=== PATIENT | female | born 2000 | race Caucasian/White ===

== ENCOUNTER → 2022-05-01 09:11 | Outpatient (CLI) | payer OTHER, SELFPAY ==
[2022-05-01 09:51] LABS: HCG,Quantitative 743 mIU/ml (0-5.42)
== END ==
PROVIDERS: PCP Nurse Practitioner Family; Visit Provider Obstetrics & Gynecology
DX: N92.6 Irregular menstruation, unspecified (principal)
CPT/HCPCS: 36415; 84702

== ENCOUNTER → 2022-05-06 15:38 | Outpatient (CLI) | payer OTHER, SELFPAY ==
[2022-05-06 16:09] LABS: Basophils # 0.1 K/mm3 (0-0.2); Basophils % 0.7 % (0.1-2.0); Eosinophils # 0.1 K/mm3 (0.0-0.4); Hematocrit 37.9 % (37.0-47.0); Hemoglobin 12.5 g/dL (12.2-16.2); Lymphocytes # 2.4 K/mm3 (0.7-4.5); Lymphocytes % 25.7 % (10-50); Mean Corpuscular HGB Conc 32.9 g/dL (31.8-35.4); Mean Corpuscular Hemoglobin 28.2 pg (27.0-31.2); Mean Corpuscular Volume 85.9 fl (81-99); Mean Platelet Volume 7.9 fl (7.4-10.4); Monocytes # 0.4 K/mm3 (0.1-1.0); Monocytes % 4.4 % (1.7-9.3); Neutrophils # 6.4 K/mm3 (1.8-7.8); Neutrophils % 68.3 % (37.0-80.0); Platelet Count 340 K/mm3 (142-424); Red Blood Count 4.41 M/mm3 (4.20-5.40); Red Cell Distribution Width 13.6 % (11.5-17.5); White Blood Count 9.4 K/mm3 (4.8-10.8)
[2022-05-06 17:18] LABS: HCG,Quantitative 4692 mIU/ml (0-5.42)
[2022-05-08 07:26] LABS: HIV Screen 4th Generation wRfx Non Reactive (Non Reactive); Hepatitis B Surface Antigen Negative (Negative); Hepatitis C Antibody 0.1 s/co ratio (0.0-0.9)
[2022-05-08 08:18] LABS: Rubella Antibodies, IgG <0.90 index (Immune >0.99)
[2022-05-08 09:12] LABS: Rapid Plasma Reagin Ab Titer Non Reactive (NonRea<1:1)
== END ==
PROVIDERS: PCP Nurse Practitioner Family; Visit Provider Obstetrics & Gynecology
DX: Z34.90 Encounter for supervision of normal pregnancy, unspecified, unspecified trimester (principal)
CPT/HCPCS: 36415; 84144; 84702; 85025; 86592; 86703; 86762; 86850; 87340; 87380; G0432

== ENCOUNTER → 2022-08-19 13:47 | Outpatient (CLI) | payer OTHER, SELFPAY ==
--- NOTE | 2022-08-19 13:55 | US_ITS ---
FINAL REPORT CLINICAL HISTORY: 20 week anatomy scan FINDINGS: There is a single live intrauterine gestation. Presentation is cephalic. The cervix is closed and measures 3.6 cm. Placenta is anterior and grade 1. Cardiac activity is confirmed at 156 beats per minute. movement is noted. Three-vessel cord with satisfactory umbilical cord insertion. Four-chamber heart is noted. brain and ventricles are unremarkable. Chest and diaphragm are unremarkable. ABDOMEN: Both kidneys are unremarkable. Stomach is unremarkable. SPINE: No anomalies identified. Both arms and legs noted. AMNIOTIC FLUID: Appropriate amount. MEASUREMENTS: ULTRASOUND AGE: 20 weeks 4 days. GESTATION AGE: 20 weeks 4 days. ESTIMATED WEIGHT: 327 g GROWTH PERCENTILE: 19 % BPD: 4.6 cm consistent with 20 weeks 1 days. OFD: 6.1 cm consistent with 20 weeks 4 days. HC: 16.9 cm consistent with 19 weeks 4 days. AC: 14.7 cm consistent with 20 weeks 0 days. FL: 3.3 cm consistent with 20 weeks 2 days. CEREBELLUM: 1.9 cm consistent with 19 weeks 2 days. HUMERUS: 3.2 cm consistent with 20 weeks 5 days. HC/AC: 1.16 CI: 77% FL/BPD: 70% FL/AC: 22% IMPRESSION: Single living IUP with an ultrasound age of 20 weeks 4 days. Reviewed, Interpreted and Dictated by Calvin Lea III, MD Transcribed by Eleazar Chavez Authenticated and . [facility]
== END ==
PROVIDERS: PCP Nurse Practitioner Family; Visit Provider Obstetrics & Gynecology
DX: Z34.90 Encounter for supervision of normal pregnancy, unspecified, unspecified trimester (principal); Z3A.20 20 weeks gestation of pregnancy
CPT/HCPCS: 76811

== ENCOUNTER → 2022-09-16 09:17 | Outpatient (CLI) | payer OTHER, SELFPAY ==
[2022-09-16 09:32] LABS: Basophils # 0.1 K/mm3 (0-0.2); Basophils % 0.6 % (0.1-2.0); Eosinophils # 0.2 K/mm3 (0.0-0.4); Eosinophils % 1.5 % (0.1-12.0); Hematocrit 35.2 % (37.0-47.0); Hemoglobin 11.3 g/dL (12.2-16.2); Lymphocytes # 2.2 K/mm3 (0.7-4.5); Lymphocytes % 17.5 % (10-50); Mean Corpuscular HGB Conc 32.1 g/dL (31.8-35.4); Mean Corpuscular Hemoglobin 29.9 pg (27.0-31.2); Mean Platelet Volume 9.3 fl (7.4-10.4); Monocytes # 0.5 K/mm3 (0.1-1.0); Monocytes % 3.6 % (1.7-9.3); Neutrophils # 9.7 K/mm3 (1.8-7.8); Neutrophils % 76.7 % (37.0-80.0); Platelet Count 318 K/mm3 (142-424); Red Blood Count 3.78 M/mm3 (4.20-5.40); Red Cell Distribution Width 14.1 % (11.5-17.5); White Blood Count 12.7 K/mm3 (4.8-10.8)
[2022-09-16 09:42] LABS: Glucose,Fasting 88 mg/dl (74-100)
[2022-09-16 12:33] LABS: Glucose 1 Hour 99 mg/dL (74-100)
== END ==
PROVIDERS: PCP Nurse Practitioner Family; Visit Provider Obstetrics & Gynecology
DX: O09.899 Supervision of other high risk pregnancies, unspecified trimester (principal); Z28.39 Other underimmunization status
CPT/HCPCS: 36415; 82951; 85025

== ENCOUNTER → 2022-11-15 12:23 | Outpatient (CLI) | payer OTHER, SELFPAY ==
--- NOTE | 2022-11-15 13:04 | US_ITS ---
FINAL REPORT CLINICAL HISTORY: lga, NORMA FINDINGS: There is a single live intrauterine gestation. Presentation is cephalic. Cervix measures 3.1 cm. Placenta is anterior, grade 2. Heart rate is 140 beats per minute. Fetus is active. AMNIOTIC FLUID: Appropriate amount. NORMA: 16 cm Three-vessel cord is seen. Four-chamber heart is normal. MEASUREMENTS: ULTRASOUND AGE: 33 weeks 3 days. GESTATION AGE: 33 weeks 1 days. ESTIMATED WEIGHT: 2302 g GROWTH PERCENTILE: 65% LMP percentile BPD: 8.1 cm corresponding with 32 weeks 5 days. OFD: 10.4 cm corresponding with 32 weeks 5 days. HC: 29.4 cm corresponding with 32 weeks 4 days. AC: 30.1 cm corresponding with 34 weeks 5 days. FL: 6.5 cm corresponding with 33 weeks 4 days. HC/AC: 0.96 CI: 78% FL/BPD: 80% FL/AC: 21% IMPRESSION: Single living IUP with an ultrasound age of 33 weeks 3 days. NORMA of 16 cm Reviewed, Interpreted and Dictated by Calvin Lea III, MD Transcribed by Natalie Lim Authenticated and . [facility]
== END ==
PROVIDERS: PCP Nurse Practitioner Family; Visit Provider Obstetrics & Gynecology
DX: O28.8 Other abnormal findings on antenatal screening of mother (principal); O36.60X0 Maternal care for excessive fetal growth, unspecified trimester, not applicable or unspecified
CPT/HCPCS: 76816

== ENCOUNTER → 2022-12-08 16:46 | Outpatient (CLI) | payer OTHER, SELFPAY | PROVIDERS: Visit Provider Obstetrics & Gynecology | DX: Z34.90 Encounter for supervision of normal pregnancy, unspecified, unspecified trimester (principal); Z3A.34 34 weeks gestation of pregnancy | CPT/HCPCS: 86403 ==

== ENCOUNTER 2022-12-28 16:15 | Inpatient (IN) | payer OTHER, SELFPAY ==
[2022-12-28 16:22] VITALS: BMI 38.4
[2022-12-28 17:13] VITALS: BMI 38.4
[2022-12-28 17:20] LABS: Coronavirus 19, PCR Not Detected (NotDetected); Influenza A, PCR Not Detected (NotDetected); Influenza B, PCR Not Detected (NotDetected); Microscopic, Urine URINE MICROSCOPIC (MICROSCOPIC)
[2022-12-28 17:22] LABS: Appearance,Urine CLEAR (Clear); Bilirubin,Urine Negative (Negative); Blood, Urine Negative (Negative); Color,Urine YELLOW (Yellow); Glucose,Urine (UA) Negative (Negative); Ketones,Urine Negative (Negative); Leukocyte Esterase,Urine Negative (Negative); Nitrate,Urine Negative (Negative); PH,Urine 5.5 (5.0-8.5); Protein,Urine Negative (Negative); Specific Gravity, Urine >= 1.030 (1.005-1.030); Urobilinogen,Urine 0.2 EU/dl (0.2)
[2022-12-28 17:28] LABS: Basophils # 0.1 K/mm3 (0-0.2); Basophils % 0.3 % (0.1-2.0); Eosinophils # 0.1 K/mm3 (0.0-0.4); Eosinophils % 0.5 % (0.1-12.0); Hemoglobin 10.8 g/dL (12.2-16.2); Lymphocytes # 1.9 K/mm3 (0.7-4.5); Lymphocytes % 14.8 % (10-50); Mean Corpuscular HGB Conc 32.7 g/dL (31.8-35.4); Mean Corpuscular Hemoglobin 27.3 pg (27.0-31.2); Mean Corpuscular Volume 83.5 fl (81-99); Mean Platelet Volume 10.1 fl (7.4-10.4); Monocytes # 0.4 K/mm3 (0.1-1.0); Monocytes % 3.4 % (1.7-9.3); Neutrophils # 10.5 K/mm3 (1.8-7.8); Neutrophils % 80.9 % (37.0-80.0); Platelet Count 259 K/mm3 (142-424); Red Blood Count 3.96 M/mm3 (4.20-5.40); Red Cell Distribution Width 15.3 % (11.5-17.5); White Blood Count 12.9 K/mm3 (4.8-10.8)
[2022-12-28 17:33] LABS: Amphetamine/Metha Screen,Urine Negative ng/ml (<1000)
[2022-12-28 17:34] LABS: Barbiturates Screen,Urine Negative ng/ml (<200)
[2022-12-28 17:35] LABS: Benzodiazepines Screen,Urine Negative ng/ml (<200); Methadone Screen,Urine Negative ng/ml (<300)
[2022-12-28 17:36] LABS: Cannabinoid Screen,Urine Negative ng/ml (<50); Cocaine Screen,Urine Negative ng/ml (<300); Squamous Epithelial Cell,Urine Occasional #/hpf (0-5); WBC,Urine Occasional #/hpf (0-3)
[2022-12-28 17:37] LABS: Opiate Screen,Urine Negative ng/ml (<300)
[2022-12-28 17:38] LABS: Phencyclidine Screen,Urine Negative ng/ml (<25)
[2022-12-29 07:59] VITALS: BP 145/86; PULSE 108; RESP 18; TEMP 36.6; O2SAT 100
--- NOTE | 2022-12-29 07:59 | PC.NURSE ---
u/g guided IV placed in the left forearm. Iv patent with blood returned. saline locked at this time.
--- NOTE | 2022-12-29 08:42 | EXP.OB.APHP ---
OB - H&P: HPI Antepartum History of Present Illness Chief complaint: Elective induction of labor History of present illness: Mrs Jacklyn Hurst is a 22 yo at 39w3d who presents to [facility] Labor and Delivery or scheduled elective induction of labor. Complains of low back pain, pelvic pressure, insomnia and lower extremity swelling. Denies headaches. Baby is very active. History of Present Criteria for establishing EDC:: LMP confirmed by 1st trimester US care: good care Ultrasounds: normal mid trimester US Obstetrical complications: none Medical complications: none Labs Blood type: A (+) positive Rubella: nonimmune RPR/VDRL: reactive GBS status: negative HBsAG: negative PFSH [facility] Disclaimer: The information contained in this section may have been updated after the patient was seen, as this information can be updated by other users. Medical History (Updated 12/29/22 @ 08:50 by Tish Murry DO) Anemia affecting , antepartum Encounter for elective induction of labor Heartburn during with 39 completed weeks gestation Screening for genetic disease carrier status Family History Other Breast cancer Social History Smoking Status: Never smoker second hand exposure: No alcohol intake: never substance use type: denies use current occupational status: employed Travel in the last 8 weeks: None housing: house Review of Systems Review of Systems Review of systems:: pertinent systems reviewed and negative unless documented below *Genitourinary Comments: + pelvic pressure *Musculoskeletal Musculoskeletal: Reports back pain (low back) Comments: + bilateral lower extremity swelling. Meds Home Medications and Allergies Home Medications Medication Instructions Recorded Confirmed Type prenat.vits,chava,iso-oxgl-sokaa 1 tab PO DAILY Supplement 12/28/22 12/28/22 History New Prescriptions to Start Prescriptions: Allergies Allergy/AdvReac Type Severity Reaction Status Date / Time SULFA (SULFONAMIDE) Allergy Mild NA-NAUSEA Uncoded 12/23/22 16:13 OB - H&P: Exam Constitutional no acute distress Routine HEENT Exam Head: Present normocephalic and atraumatic Eye: Absent conjunctivae pink ENT: Present mucous membranes moist and dentition normal Routine Neck Exam Present full ROM Routine Respiratory Exam Present CTA bilaterally and normal respiratory effort Routine Cardiovascular Exam Present RRR Routine Abdominal Exam Present soft (Gravid); Absent tenderness Routine Rectal Exam Patient deferred: visual exam Routine Exam External: Present normal urethra appearance; Absent erythema, lesions or lacerations Routine Extremities Exam Present edema (+1 bilateral lower extremity swelling) and full ROM; Absent calf tenderness Routine Neurological Exam Present alert, oriented X3 and moving all extremities Routine Psychiatric Exam Present normal affect and cooperative Detailed Labor and Delivery Exam Dilation (cm): 2 Effacement (%): 50 Cervix position: posterior station: -3 Consistency: medium Membranes: artificially ruptured (amniotomy performed at 0815 with amnihook. patient tolerated well.) Amniotic fluid: clear Baseline heart rate: 150 monitor accelerations: Present monitor decelerations: None skilled nursing variability: Moderate (11-25) Contraction frequency (min): 3 Tachysystole: No OB - Results Labs Labs: Short CBC 12/28/22 Range/Units 17:00 WBC 12.9 H (4.8-10.8) K/mm3 Hgb 10.8 L (12.2-16.2) g/dL Hct 33.0 L (37.0-47.0) % Plt Count 259 (142-424) K/mm3 Urine 12/28/22 Range/Units 17:00 Urine Color Yellow (Yellow) Urine Appearance Clear (Clear) Urine pH 5.5 (5.0-8.5) Ur Specific [place] >= 1.030 (1.005-1.030) Urine Protein Negative (Negative) Urine Glucose (UA)
--- NOTE | 2022-12-29 13:12 | EXP.ANES.CKL ---
[facility] Disclaimer: The information contained in this section may have been updated after the patient was seen, as this information can be updated by other users. Medical History (Updated 12/29/22 @ 08:50 by Tish Murry DO) Anemia affecting , antepartum Encounter for elective induction of labor Heartburn during with 39 completed weeks gestation Screening for genetic disease carrier status Family History Other Breast cancer Social History Smoking Status: Never smoker second hand exposure: No alcohol intake: never substance use type: denies use current occupational status: employed Travel in the last 8 weeks: None housing: house [facility] Anesthesia Checklist Patient Identification Patient Identification: Arm Band Structural Data Admitted From: Inpatient Planned Operative Procedure/s: Labor Epidural Consent for Planned Operative Procedure(s) Verified: Yes Verified Documents: Surgical Consent and History and Physical NPO Status Verified Time NPO: 00:00 Additional verifications Anesthesia Reactions: No Airway Assessment C-Spine Mobility Assessed: Yes TMJ Mobility Assessed: Yes Dentition: Good Dentition Neurological Assessment Level of Consciousness: Awake and Alert Anesthesia Plan Anesthesia Risk discussed: Yes Anesthesia Plan: Verified ASA Class: II Anesthesia Type: Epidural
[2022-12-29 16:13] VITALS: BP 129/74; PULSE 103; RESP 18; TEMP 36.6; O2SAT 99
--- NOTE | 2022-12-29 22:38 | P.PCN_ITS ---
Delivery Note Delivery Date:: 12/29/22 Delivery Time:: 21:39 Anesthesia Type: Epidural Was labor medically induced?: No Induction method: per pitocin protocol Gestational age (weeks): 39 delivered prior to 39 weeks?: No Infant Gender: Female at 1 minute: 6 at 5 minutes: 8 LAC or MLE?: MLE Delivery Procedure:: Mom complete without epidural. Pushed for approximately 2 hours. CMI Vacuum was applied at +2 of 3 station for maternal exhaustion per patient request. Discussed risks to baby including but not limited to lacerations, bleeding and bruising to baby's head and increased vaginal lacerations and bleeding to mother. Verbal consent obtained. Two pulls and two pop offs brought baby to +3 of 3 station. Vacuum was removed from the delivery table. Patient continued to push. Midline episiotomy was performed for maternal exhaustion and tight perineal band. Mom continued to push. Head delivered spontaneously over intact perineum in direct OA position. Baby was rotated to JERI. Shoulder dystocia was immediately recognized. Shoulder dystocia was resolved with Ashwini maneuver and suprapubic pressure within 15 seconds. No nuchal cord. Anterior shoulder delivered with gentle downward pressure with the above maneuvers. Posterior shoulder and remainder of body delivered spontaneously. As baby was placed on maternal abdomen umbilical cord tore. Very short umbilical cord. Cord was clamped. Baby placed on maternal abdomen, mouth and nares bulb suctioned, warmed/dried and stimulated. Baby was taken to the warmer for evaluation. Placenta delivered spontaneously and intact. Midline episiotomy extended to 3rd degree perineal laceration repaired with 3-0 Vicryl. Hemostasis was noted. Baby was not moving left upper extremity. Fractured clavicle was palpated. Pharmacy Clinical Specialist was called. Mom and baby were doing okay after delivery. Live female baby (baby's name is Collin) APGARs 6, 8 EBL 400 mL Placental Delivery Description: Spontaneous
[2022-12-30 06:22] LABS: Basophils % 0.1 % (0.1-2.0); Eosinophils # 0.1 K/mm3 (0.0-0.4); Eosinophils % 0.5 % (0.1-12.0); Hematocrit 27.7 % (37.0-47.0); Lymphocytes # 1.7 K/mm3 (0.7-4.5); Lymphocytes % 6.8 % (10-50); Mean Corpuscular HGB Conc 32.4 g/dL (31.8-35.4); Mean Corpuscular Hemoglobin 27.5 pg (27.0-31.2); Mean Corpuscular Volume 84.7 fl (81-99); Mean Platelet Volume 10.5 fl (7.4-10.4); Monocytes # 0.9 K/mm3 (0.1-1.0); Monocytes % 3.6 % (1.7-9.3); Neutrophils # 21.6 K/mm3 (1.8-7.8); Platelet Count 249 K/mm3 (142-424); Red Blood Count 3.26 M/mm3 (4.20-5.40); Red Cell Distribution Width 15.2 % (11.5-17.5); White Blood Count 24.3 K/mm3 (4.8-10.8)
[2022-12-30 06:24] LABS: MANUAL DIFFERENTIAL MANUAL DIFFERENTIAL (MANUAL DIFF)
[2022-12-30 07:32] LABS: Lymphocytes % 10 % (10-50); Monocytes % 5 % (2-9); Neutrophils % 85 % (42-76); Platelet Estimate Normal; RBC Morphology Normal; Total Cells Counted 100
[2022-12-30 08:34] VITALS: BP 120/77; PULSE 85; RESP 18; TEMP 36.6; O2SAT 98
--- NOTE | 2022-12-30 13:51 | EXP.ACUTE.PN ---
Subjective *Date: 12/30/22 *Time: 13:51 Interval history: PPD # 1 s/p vaginal delivery She is doing well. Pain is controlled with medication. She is breast feeding. Lochia is appropriate. Voiding without difficulty and passing flatus. Denies fever/chills, chest pain and shortness of breath. No headaches, vision changes or lower extremity swelling. Medical Exam Vital signs and Labs for Last 24 Hours: Vital Signs Temp Pulse Resp BP Pulse Ox 12/30/22 08:34 97.9 F 85 18 120/77 98 12/29/22 16:13 97.8 F 103 H 18 129/74 99 Laboratory Results - last 24 hr 12/30/22 06:10: WBC 24.3 H* D, RBC 3.26 L, Hgb 9.0 L, Hct 27.7 L, MCV 84.7, MCH 27.5, MCHC 32.4, RDW 15.2, Plt Count 249, MPV 10.5 H, Neut % (Auto) 89.0 H, Lymph % (Auto) 6.8 L, [place] % (Auto) 3.6, Eos % (Auto) 0.5, Baso % (Auto) 0.1, Neut # (Auto) 21.6 H, Lymph # (Auto) 1.7, [place] # (Auto) 0.9, Eos # (Auto) 0.1, Baso # (Auto) 0.0, Total Counted 100, Neutrophils % (Manual) 85 H, Lymphocytes % (Manual) 10, Monocytes % (Manual) 5, Platelet Estimate Normal, RBC Morphology Normal I & O for Labs for Last 24 Hours: Intake & Output 12/27/22 12/28/22 12/29/22 12/30/22 23:59 23:59 23:59 23:59 Weight 210 lb Head: Present atraumatic and normocephalic ENT: Present normal exam and mucous membranes moist Neck: Present full ROM Respiratory: Present CTA bilaterally and normal respiratory effort Cardiac: Present Reg Rate and Rhythm GI: Present soft and normal bowel sounds; Absent distention or tenderness Comments:: Uterine fundus firm and below umbilicus Rectal (female): Present deferred (female): Present deferred Neuro: Present alert, oriented x 3 and moves all extremities Assessment and Plan *Assessment and plan (1) with 39 completed weeks gestation: Status: Acute Category: Medical Code(s): Z3A.39 - 39 weeks gestation of (2) Encounter for elective induction of labor: Status: Acute Category: Medical Code(s): Z34.90 - Encounter for supervision of normal , unspecified, unspecified trimester (3) Status post vaginal delivery: Status: Acute Category: Surgical (4) Third degree perineal laceration during delivery: Status: Acute Category: Medical Code(s): O70.20 - Third degree perineal laceration during delivery, unspecified (5) Rubella non-immune status, antepartum: Status: Acute Category: Medical Code(s): O09.899 - Supervision of other high risk pregnancies, unspecified trimester; Z28.39 - Other underimmunization status (6) Anemia affecting , antepartum: Status: Acute Category: Medical Code(s): O99.019 - Anemia complicating , unspecified trimester (7) Acute blood loss anemia: Status: Acute Category: Medical Code(s): D62 - Acute posthemorrhagic anemia (8) Leukocytosis: Status: Acute Category: Medical Code(s): D72.829 - Elevated white blood cell count, unspecified Plan Continue routine care Encouraged increased ambulation Venofer 200 mg IV x 1 dose Repeat CBC in the AM and send urine for culture to evaluate for leukocytosis MMR before discharge Plan d/c home tomorrow
[2022-12-30 17:29] VITALS: BP 120/74; PULSE 101; RESP 18; TEMP 36.7; O2SAT 98
[2022-12-30 20:07] VITALS: BP 109/57; PULSE 91; RESP 17; TEMP 36.6; O2SAT 98
[2022-12-31 04:06] VITALS: BP 122/56; PULSE 102; RESP 18; TEMP 36.8; O2SAT 99
[2022-12-31 06:25] LABS: Basophils # 0.1 K/mm3 (0-0.2); Basophils % 0.3 % (0.1-2.0); Eosinophils # 0.1 K/mm3 (0.0-0.4); Eosinophils % 0.8 % (0.1-12.0); Hematocrit 23.5 % (37.0-47.0); Lymphocytes % 17.8 % (10-50); Mean Corpuscular HGB Conc 33.3 g/dL (31.8-35.4); Mean Corpuscular Hemoglobin 28.1 pg (27.0-31.2); Mean Corpuscular Volume 84.3 fl (81-99); Mean Platelet Volume 10.1 fl (7.4-10.4); Monocytes # 0.7 K/mm3 (0.1-1.0); Monocytes % 4.1 % (1.7-9.3); Neutrophils # 12.9 K/mm3 (1.8-7.8); Neutrophils % 77.1 % (37.0-80.0); Platelet Count 229 K/mm3 (142-424); Red Blood Count 2.79 M/mm3 (4.20-5.40); Red Cell Distribution Width 15.4 % (11.5-17.5); White Blood Count 16.8 K/mm3 (4.8-10.8)
[2022-12-31 06:27] LABS: MANUAL DIFFERENTIAL MANUAL DIFFERENTIAL (MANUAL DIFF)
[2022-12-31 06:29] LABS: Hemoglobin 7.8 g/dL (12.2-16.2)
[2022-12-31 06:42] LABS: Lymphocytes % 15 % (10-50); Monocytes % 4 % (2-9); Neutrophils % 81 % (42-76); Platelet Estimate Normal; RBC Morphology Normal; Total Cells Counted 100
--- NOTE | 2022-12-31 11:21 | EXP.DC.SUM ---
General Admission date:: 12/28/22 Discharge date: 12/31/22 HPI HPI HPI: PPD # 2 s/p VAVD Sitting comfortably in bed. Pain is controlled with PO medication. She is breast feeding. Light lochia. Voiding without difficulty and passing flatus. Tolerating regular diet. Denies fever/chills, chest pain and shortness of breath. Denies lightheadedness/dizziness. Admits to mild bilateral feet swelling. No calf pain. Hospital Course Hospital Course Hospital Course: Mrs Jacklyn Hurst is a 22 yo at 39w3d who presents to [facility] Labor and Delivery for scheduled elective induction of labor. GBS negative. She underwent induction of labor with Cervidil followed by Pitocin. She underwent a vacuum assisted vaginal delivery with midline episiotomy that extended to 3rd degree perineal laceration on 12/29/22 at 2139. She pushed for approximately 2 hours. She delivered a live female baby (baby's name is Collin) weighing 8 lb 4 oz. APGARs 6, 8. EBL 400 mL. She was started on Colace 100mg PO BID to keep stool soft. She was doing well . Pain controlled with PO medication. Light lochia. Breast feeding. Vital signs stable, afebrile. She was voiding without difficulty and passing flatus. She has not had a BM. Tolerating regular diet. She denied fever/chills, chest pain and shortness of breath. No headaches, vision changes, lightheadedness or dizziness. On PPD # 1 she received Venofer 200 mg IV x 1 dose for acute blood loss anemia. She was noted to have leukocytosis on PPD # 1, Urine culture was ordered. PPD # 2 leukocytosis improved. Urine culture pending. She was instructed to continue Colace 100mg PO BID, increase fresh fruits and water intake to keep BM soft while 3rd degree perineal laceration heals. She was discharged to home on PPD # 2 and instructed to follow-up in the office in 2 weeks or sooner if needed. Exam Data for Last 24 hours Vital signs and Labs for Last 24 Hours: Temp Pulse Resp BP Pulse Ox 98.2 F 102 H 18 122/56 L 99 12/31/22 04:06 12/31/22 04:06 12/31/22 04:06 12/31/22 04:06 12/31/22 04:06 Laboratory Results - last 24 hr 12/31/22 05:50: WBC 16.8 H D, RBC 2.79 L, Hgb 7.8 L D, Hct 23.5 L, MCV 84.3, MCH 28.1, MCHC 33.3, RDW 15.4, Plt Count 229, MPV 10.1, Neut % (Auto) 77.1, Lymph % (Auto) 17.8, [place] % (Auto) 4.1, Eos % (Auto) 0.8, Baso % (Auto) 0.3, Neut # (Auto) 12.9 H, Lymph # (Auto) 3.0, [place] # (Auto) 0.7, Eos # (Auto) 0.1, Baso # (Auto) 0.1, Total Counted 100, Neutrophils % (Manual) 81 H, Lymphocytes % (Manual) 15, Monocytes % (Manual) 4, Platelet Estimate Normal, RBC Morphology Normal I & O for Last 24 hours: Intake & Output 12/28/22 12/29/22 12/30/22 12/31/22 23:59 23:59 23:59 23:59 Weight 210 lb Constitutional Constitutional: no acute distress *Routine HEENT Exam Head: Present normocephalic and atraumatic Eye: Absent conjunctivae pink ENT: Present mucous membranes moist and dentition normal *Routine Neck Exam Neck: Present full ROM *Routine Respiratory Exam Respiratory: Present CTA bilaterally and normal respiratory effort *Routine Cardiovascular Exam Cardiovascular: Present RRR *Routine Abdominal Exam Abdominal: Present soft and normoactive bowel sounds; Absent tenderness or distended Comments: Uterine fundus firm and below umbilicus *Routine Rectal Exam Patient deferred: visual exam *Routine Exam Patient deferred: external exam *Routine Extremities Exam Extremities: Present edema (+1 bilateral pedal and ankle edema) and full ROM; Absent calf tenderness *Routine Neurological Exam Neurological: Present alert, oriented X3 and moving all extremities Routine Psychiatric Exam Psychiatric: Present normal affect and cooperative Results Data Completed and Pending Labs on day of discharge: Labs from last 24 hours 12/31/22 05:50 WBC 16.8 H D RBC 2.79 L Hgb 7.8 L D Hct 23.5 L MCV 84.3 MCH 28.1 MCHC 33.3 RDW 15.4 Plt Count 229 MPV 10.1 Neut % (Auto) 77.1 Lymph % (Aut
== END 2022-12-31 17:18 | disposition home or self-care (01) | DRG 768 ==
PROVIDERS: Admitting Provider Obstetrics & Gynecology; PCP Nurse Practitioner Family; Visit Provider Obstetrics & Gynecology
DX: Z37.0 Single live birth; D62 Acute posthemorrhagic anemia; O70.20 Third degree perineal laceration during delivery, unspecified; O75.81 Maternal exhaustion complicating labor and delivery; O99.03 Anemia complicating the puerperium; Z3A.39 39 weeks gestation of pregnancy; Z23 Encounter for immunization; O69.3XX0 Labor and delivery complicated by short cord, not applicable or unspecified; O66.0 Obstructed labor due to shoulder dystocia
CPT/HCPCS: 59409; 36415; 59025; 80305; 81001; 85007; 85025; 86850; 87086; 87088; 87186; 90707; 94761; C1758; C9803; G0283; J1756; J2405; U0003; U0005

== ENCOUNTER 2023-01-09 20:52 | Observation (INO) | payer OTHER, SELFPAY ==
--- NOTE | 2023-01-09 20:15 | PC.NURSE ---
Patient arrived to unit at this time via wheelchair. Accompanied by ER staff and mother. Patient was able to give a urine sample. Patient reports fever, chills, nausea, headache, decreased appetite. Patient denies blurred vision, aura, no tenderness upon palpation on abdomen. Patient reports bleeding within normal limits.
[2023-01-09 20:17] VITALS: BP 113/83; PULSE 156; RESP 17; TEMP 38.2; O2SAT 100
[2023-01-09 20:52] VITALS: O2SAT 100; BMI 33.9
--- NOTE | 2023-01-09 21:03 | PC.NURSE ---
Spoke with Yariel from pharmacy regarding Dicloxacillin. Not available in house.
[2023-01-09 21:58] LABS: Microscopic, Urine URINE MICROSCOPIC (MICROSCOPIC)
[2023-01-09 22:02] LABS: Appearance,Urine CLEAR (Clear); Bilirubin,Urine Negative (Negative); Blood, Urine 1+ (Negative); Color,Urine YELLOW (Yellow); Glucose,Urine (UA) Negative (Negative); Ketones,Urine Negative (Negative); Leukocyte Esterase,Urine Negative (Negative); Nitrate,Urine Negative (Negative); Protein,Urine 1+ (Negative); Specific Gravity, Urine >= 1.030 (1.005-1.030); Urobilinogen,Urine 0.2 EU/dl (0.2)
[2023-01-09 22:02] LABS: Basophils # 0.1 K/mm3 (0-0.2); Basophils % 0.4 % (0.1-2.0); Eosinophils # 0.1 K/mm3 (0.0-0.4); Eosinophils % 0.7 % (0.1-12.0); Hematocrit 35.4 % (37.0-47.0); Hemoglobin 11.3 g/dL (12.2-16.2); Lymphocytes % 5.4 % (10-50); Mean Corpuscular Hemoglobin 27.4 pg (27.0-31.2); Mean Corpuscular Volume 85.7 fl (81-99); Mean Platelet Volume 8.9 fl (7.4-10.4); Monocytes # 0.4 K/mm3 (0.1-1.0); Monocytes % 1.9 % (1.7-9.3); Neutrophils # 17.1 K/mm3 (1.8-7.8); Neutrophils % 91.6 % (37.0-80.0); Platelet Count 396 K/mm3 (142-424); Red Blood Count 4.13 M/mm3 (4.20-5.40); Red Cell Distribution Width 15.6 % (11.5-17.5); White Blood Count 18.6 K/mm3 (4.8-10.8)
--- NOTE | 2023-01-09 22:02 | PC.NURSE ---
Spoke with Raj with oncall pharmacy regarding Vancomycin dosing and breast feeding. Patient advised to pump and dump. Raj was unsure of how long as it was not mentioned in medication information. Vancomycin is present in breast milk 4 hours after IV initial dosing.
[2023-01-09 22:06] LABS: Coronavirus 19, PCR Not Detected (NotDetected); Influenza A, PCR Not Detected (NotDetected); Influenza B, PCR Not Detected (NotDetected)
[2023-01-09 22:06] LABS: MANUAL DIFFERENTIAL MANUAL DIFFERENTIAL (MANUAL DIFF)
[2023-01-09 22:13] LABS: Chloride 102 mmol/L (98-107); Sodium 138 mmol/L (136-145)
[2023-01-09 22:15] LABS: Blood Urea Nitrogen 13 mg/dl (7-17); Creatinine Clearance Estimated 145 mL/min (50-200); Estimated Glomerular Filt Rate 89 ml/min (>60); GFR (African American) 108 ML/MIN (>60)
[2023-01-09 22:16] LABS: Alanine Aminotransferase 29 U/L (12-78); Albumin Level 4.8 g/dl (3.5-5.0); Albumin/Globulin Ratio 1.2 (1.1-1.8); Alkaline Phosphatase 138 U/L (38-126); Aspartate Amino Transferase 35 U/L (14-36); Bilirubin,Total 0.5 mg/dl (0.2-1.3); Carbon Dioxide 25 mmol/L (22.0-30.0); Globulin 3.9 g/dL (1.3-3.2); Total Protein,Serum 8.7 g/dl (6.3-8.2)
[2023-01-09 22:17] LABS: Calcium 9.4 mg/dl (8.4-10.2); Glucose 108 mg/dl (74-100)
[2023-01-09 22:21] LABS: Bacteria,Urine Trace /lpf; Squamous Epithelial Cell,Urine Occasional #/hpf (0-5); WBC,Urine Occasional #/hpf (0-3)
[2023-01-09 22:22] VITALS: PULSE 130; RESP 19; TEMP 39.1; O2SAT 100
[2023-01-09 22:29] LABS: Lactic Acid 1.2 mmol/L (0.7-2.1)
--- NOTE | 2023-01-09 22:39 | PC.NURSE ---
Spoke with [facility] for Gentamycin dosing.
[2023-01-09 23:01] LABS: Lymphocytes % 8 % (10-50); Neutrophils % 92 % (42-76); Platelet Estimate Normal; RBC Morphology Normal; Total Cells Counted 100
[2023-01-09 23:26] VITALS: BP 116/69; PULSE 117; RESP 17; TEMP 37; O2SAT 100
[2023-01-10] VITALS (10 sets, daily range): BP systolic 102–139; BP diastolic 54–72; PULSE 83–113; RESP 15–18; TEMP 36.7–37.6; O2SAT 98–100
--- NOTE | 2023-01-10 04:54 | PC.NURSE ---
Patient remains afebrile since medication administrations earlier in the shift. Patient lung sounds remain clear throughout. Patient has been able to pump. Patient educated on the importance of warm compresses and pumping to ensure we are keeping things flowing. Patient verbalized understanding. Patient bowel sounds are active. Patient denies nausea.
--- NOTE | 2023-01-10 07:00 | PC.NURSE ---
Report received from COURTNEY Melchor.
--- NOTE | 2023-01-10 07:21 | PC.NURSE ---
Report given to Cheikh Rosales RN
[2023-01-10 07:28] LABS: Eosinophils # 0.2 K/mm3 (0.0-0.4); Monocytes # 0.5 K/mm3 (0.1-1.0); Monocytes % 3.8 % (1.7-9.3)
[2023-01-10 07:38] LABS: Alanine Aminotransferase 23 U/L (12-78); Albumin Level 3.5 g/dl (3.5-5.0); Albumin/Globulin Ratio 1.2 (1.1-1.8); Alkaline Phosphatase 117 U/L (38-126); Aspartate Amino Transferase 29 U/L (14-36); Basophils % 0.3 % (0.1-2.0); Bilirubin,Total 0.5 mg/dl (0.2-1.3); Blood Urea Nitrogen 9 mg/dl (7-17); Calcium 8.2 mg/dl (8.4-10.2); Carbon Dioxide 23 mmol/L (22.0-30.0); Chloride 106 mmol/L (98-107); Creatinine Clearance Estimated 194 mL/min (50-200); Eosinophils % 1.6 % (0.1-12.0); Estimated Glomerular Filt Rate 124 ml/min (>60); GFR (African American) 150 ML/MIN (>60); Globulin 2.9 g/dL (1.3-3.2); Glucose 106 mg/dl (74-100); Hematocrit 30.1 % (37.0-47.0); Lymphocytes # 0.8 K/mm3 (0.7-4.5); Lymphocytes % 6.8 % (10-50); Mean Corpuscular HGB Conc 32.3 g/dL (31.8-35.4); Mean Corpuscular Hemoglobin 27.8 pg (27.0-31.2); Mean Platelet Volume 8.3 fl (7.4-10.4); Neutrophils # 10.8 K/mm3 (1.8-7.8); Neutrophils % 87.6 % (37.0-80.0); Platelet Count 290 K/mm3 (142-424); Red Cell Distribution Width 15.7 % (11.5-17.5); Sodium 135 mmol/L (136-145); Total Protein,Serum 6.4 g/dl (6.3-8.2); White Blood Count 12.3 K/mm3 (4.8-10.8)
[2023-01-10 07:39] LABS: Hemoglobin 9.7 g/dL (12.2-16.2); MANUAL DIFFERENTIAL MANUAL DIFFERENTIAL (MANUAL DIFF)
[2023-01-10 07:44] LABS: Anion Gap 9.9 mEq/L (5-15); Potassium 3.9 mmoL/L (3.5-5.1)
--- NOTE | 2023-01-10 08:03 | HMH.PHAINT1 ---
Pharmacy Intervention Comments: MEDICATION RECONCILIATION COMPLETED ON PATIENT USING EXTERNAL FILL HISTORY FROM PHARMACY. -LAUREN HARMON, EVITAD
[2023-01-10 08:07] LABS: Anisocytosis 1+; Eosinophils % 1 % (0-3); Hypochromasia 1+; Lymphocytes % 4 % (10-50); Monocytes % 5 % (2-9); Neutrophils % 90 % (42-76); Platelet Estimate Normal; Total Cells Counted 100
--- NOTE | 2023-01-10 08:35 | EXP.PHA.CONS ---
Pharmacy Consult Date: 01/10/23 Time: 08:35 Referring provider: DR SALAZAR Reason for Consult:: VANCOMYCIN AND GENTAMICIN DOSING CONSULT Allergies Allergy/AdvReac Type Severity Reaction Status Date / Time SULFA (SULFONAMIDE) Allergy Mild NA-NAUSEA Uncoded 12/23/22 16:13 Home Medications Medication Instructions Recorded Confirmed Type prenat.vits,chava,pax-ffza-zqhip 1 tab PO DAILY Supplement 12/28/22 01/10/23 History ibuprofen 400 mg tablet 800 mg PO Q8HP PRN Mild To 12/31/22 01/10/23 Rx Moderate Pain #40 tabs oxycodone 5 mg tablet 5 mg PO Q6HP PRN Moderate Pain #20 12/31/22 01/10/23 Rx tabs nitrofurantoin 100 mg PO Q12H Infection 01/10/23 01/10/23 History monohydrate/macrocrystals 100 mg capsule (Macrobid) New Prescriptions to Start Prescriptions: Height: 1.57 m Weight: 84.085 kg Laboratory Results:: Laboratory Results - last 24 hr 01/09/23 20:25: Urine Color Yellow, Urine Appearance Clear, Urine pH 6.0, Ur Specific [place] >= 1.030, Urine Protein 1+, Urine Glucose (UA) Negative, Urine Ketones Negative, Urine Blood 1+, Urine Nitrate Negative, Urine Bilirubin Negative, Urine Urobilinogen 0.2, Ur Leukocyte Esterase Negative, Urine RBC 3-5, Urine WBC Occasional, Ur Squamous Epith Cells Occasional, Urine Bacteria Trace 01/09/23 20:35: SARS-CoV-2 (PCR) Not detected, Influenza A Untype (PCR) Not detected, Influenza Type B (PCR) Not detected 01/09/23 21:40: WBC 18.6 H, RBC 4.13 L, Hgb 11.3 L, Hct 35.4 L, MCV 85.7, MCH 27.4, MCHC 32.0, RDW 15.6, Plt Count 396, MPV 8.9, Neut % (Auto) 91.6 H, Lymph % (Auto) 5.4 L, [place] % (Auto) 1.9, Eos % (Auto) 0.7, Baso % (Auto) 0.4, Neut # (Auto) 17.1 H, Lymph # (Auto) 1.0, [place] # (Auto) 0.4, Eos # (Auto) 0.1, Baso # (Auto) 0.1, Total Counted 100, Neutrophils % (Manual) 92 H, Lymphocytes % (Manual) 8 L, Platelet Estimate Normal, RBC Morphology Normal 01/09/23 21:40: Sodium 138, Potassium 4.0, Chloride 102, Carbon Dioxide 25, Anion Gap 15.0, BUN 13, Creatinine 0.80, Estimated Creat Clear 145, Estimated GFR 89, Est GFR ( Amer) 108, Glucose 108 H, Calcium 9.4, Total Bilirubin 0.5, AST 35, ALT 29, Alkaline Phosphatase 138 H, Total Protein 8.7 H, Albumin 4.8, Globulin 3.9 H, Albumin/Globulin Ratio 1.2 01/09/23 21:40: Lactate 1.2 01/10/23 07:02: WBC 12.3 H D, RBC 3.50 L, Hgb 9.7 L D, Hct 30.1 L, MCV 86.0, MCH 27.8, MCHC 32.3, RDW 15.7, Plt Count 290 D, MPV 8.3, Neut % (Auto) 87.6 H, Lymph % (Auto) 6.8 L, [place] % (Auto) 3.8, Eos % (Auto) 1.6, Baso % (Auto) 0.3, Neut # (Auto) 10.8 H, Lymph # (Auto) 0.8, [place] # (Auto) 0.5, Eos # (Auto) 0.2, Baso # (Auto) 0.0, Total Counted 100, Neutrophils % (Manual) 90 H, Lymphocytes % (Manual) 4 L, Monocytes % (Manual) 5, Eosinophils % (Manual) 1, Platelet Estimate Normal, Hypochromasia 1+, Anisocytosis 1+ 01/10/23 07:02: Sodium 135 L, Potassium 3.9, Chloride 106, Carbon Dioxide 23, Anion Gap 9.9, BUN 9 D, Creatinine 0.60 D, Estimated Creat Clear 194, Estimated GFR 124, Est GFR ( Amer) 150 D, Glucose 106 H, Calcium 8.2 L, Total Bilirubin 0.5, AST 29, ALT 23, Alkaline Phosphatase 117, Total Protein 6.4 D, Albumin 3.5 D, Globulin 2.9, Albumin/Globulin Ratio 1.2 Medical History: Medical History (Updated 01/04/23 @ 00:00 by Background Daemon) Acute blood loss anemia Anemia affecting , antepartum Encounter for elective induction of labor Heartburn during Leukocytosis with 39 completed weeks gestation Screening for genetic disease carrier status Third degree perineal laceration during delivery Assessment and Plan Assessment and plan all Dx Assessment and Plan for all problems:: VANCOMYCIN Pharmacokinetic dosing service Objective: Age: 22 yo Serum creatinine: 0.6 mg/dL Height: 62.0 Inches Weight (kg): 84.085 Diagnosis: MASTITIS Assessment: IBW (kg): 50.10 Dosing wt(kg): 63.7 Estimated Creatinine c
--- NOTE | 2023-01-10 08:40 | EXP.HPDC ---
General Admission date:: 01/09/23 Discharge date: 01/10/23 *Admission Date: 01/09/23 *Chief complaint: Fever/chills, headache, breast pain *History of present illness: Mrs Jacklyn Hurst is a 22 yo P1001 12 days s/p vaginal delivery. She is breast feeding. She states yesterday morning she noticed her breasts were getting firm and painful. Then she quickly developed redness around her left breast. She admits it was painful to nurse. She then developed a fever of 101.7 at home and came to the ED. Denies abdominal pain, vaginal discharge, nausea and vomiting. No chest pain or shortness of breath. Light lochia. Reports normal BMs. No bladder or bowel complaints. Reports normal BM. [facility] Disclaimer: The information contained in this section may have been updated after the patient was seen, as this information can be updated by other users. Medical History (Updated 01/10/23 @ 10:13 by Tish Murry DO) Acute blood loss anemia Anemia affecting , antepartum Encounter for elective induction of labor Heartburn during Leukocytosis Mastitis with 39 completed weeks gestation Screening for genetic disease carrier status Sepsis Third degree perineal laceration during delivery Surgical History Status post vaginal delivery Family History Other Breast cancer Social History (Updated 01/10/23 @ 02:38 by Sonya Rose RN) Smoking Status: Never smoker second hand exposure: No alcohol intake: never substance use type: denies use current occupational status: employed Travel in the last 8 weeks: None housing: house do you feel safe at home: Yes victim of physical abuse: No victim of emotional abuse: No victim of sexual abuse: No Review of Systems Review of Systems Review of systems:: pertinent systems reviewed and negative unless documented below Constitutional Constitutional: Reports fever(s) and Reports headache(s) ENT Ears, Nose, Mouth, and Throat: Reports headache(s) Integumentary/Breasts Skin/Breast: Reports change in pigmentation, Reports erythema and Reports breast pain *Neurologic Neurologic: Reports headache(s) Exam Data for Last 24 hours Vital signs and Labs for Last 24 Hours: Temp Pulse Resp BP Pulse Ox 99.3 F 109 H 18 114/63 98 01/10/23 08:05 01/10/23 08:05 01/10/23 08:05 01/10/23 08:05 01/10/23 08:25 Laboratory Results - last 24 hr 01/09/23 20:25: Urine Color Yellow, Urine Appearance Clear, Urine pH 6.0, Ur Specific [place] >= 1.030, Urine Protein 1+, Urine Glucose (UA) Negative, Urine Ketones Negative, Urine Blood 1+, Urine Nitrate Negative, Urine Bilirubin Negative, Urine Urobilinogen 0.2, Ur Leukocyte Esterase Negative, Urine RBC 3-5, Urine WBC Occasional, Ur Squamous Epith Cells Occasional, Urine Bacteria Trace 01/09/23 20:35: SARS-CoV-2 (PCR) Not detected, Influenza A Untype (PCR) Not detected, Influenza Type B (PCR) Not detected 01/09/23 21:40: WBC 18.6 H, RBC 4.13 L, Hgb 11.3 L, Hct 35.4 L, MCV 85.7, MCH 27.4, MCHC 32.0, RDW 15.6, Plt Count 396, MPV 8.9, Neut % (Auto) 91.6 H, Lymph % (Auto) 5.4 L, [place] % (Auto) 1.9, Eos % (Auto) 0.7, Baso % (Auto) 0.4, Neut # (Auto) 17.1 H, Lymph # (Auto) 1.0, [place] # (Auto) 0.4, Eos # (Auto) 0.1, Baso # (Auto) 0.1, Total Counted 100, Neutrophils % (Manual) 92 H, Lymphocytes % (Manual) 8 L, Platelet Estimate Normal, RBC Morphology Normal 01/09/23 21:40: Sodium 138, Potassium 4.0, Chloride 102, Carbon Dioxide 25, Anion Gap 15.0, BUN 13, Creatinine 0.80, Estimated Creat Clear 145, Estimated GFR 89, Est GFR ( Amer) 108, Glucose 108 H, Calcium 9.4, Total Bilirubin 0.5, AST 35, ALT 29, Alkaline Phosphatase 138 H, Total Protein 8.7 H, Albumin 4.8, Globulin 3.9 H, Albumin/Globulin Ratio 1.2 01/09/23 21:40: Lactate 1.2 03/27/23 07:02: WBC 12.3 H D, RBC 3.50 L, Hgb 9.7 L D, Hct 30.1 L, MCV 86.0, MCH 2
[2023-01-10 11:40] LABS: Gentamicin,Random 1.1 ug/ml
--- NOTE | 2023-01-10 16:26 | PC.NURSE ---
Continues to improve as shift has gone on. Denies needing anything for pain, continues Ibuprofen scheduled. Applying ice packs to breasts intermittently. Provided with hospital Symphony pump to use instead of wearable pumps in attempt to express more milk. Plans to go home tonight around 10pm if remains afebrile.
--- NOTE | 2023-01-10 18:42 | PC.NURSE ---
Pt sleeping soundly. Her mother is asleep in sleep chair. No distress noted.
--- NOTE | 2023-01-10 18:55 | PC.NURSE ---
Report received from Cheikh Rosales RN. This RN is resuming all care at this time.
--- NOTE | 2023-01-10 18:55 | PC.NURSE ---
Report received from Cheikh Rosales RN. This RN is assuming patient care at this time. Patient resting comfortably in bed. No distress noted.
--- NOTE | 2023-01-10 18:55 | PC.NURSE ---
Report given to Moira Rose RN.
--- NOTE | 2023-01-10 19:54 | PC.NURSE ---
Patient discharge instructions gone over with at this time.
--- NOTE | 2023-01-10 22:00 | PC.NURSE ---
Patient escorted off unit at this time.
== END 2023-01-10 22:00 | disposition home or self-care (01) ==
LOC: OBOUT 20:53 → OB 20:53
PROVIDERS: Admitting Provider Obstetrics & Gynecology; PCP Nurse Practitioner Family; Visit Provider Obstetrics & Gynecology
DX: O91.22 Nonpurulent mastitis associated with the puerperium (principal); O85 Puerperal sepsis
CPT/HCPCS: 36415; 80053; 80170; 81001; 83605; 85007; 85025; 87040; 87077; C9803; G0378; J3370; U0003; U0005

== ENCOUNTER → 2023-01-12 16:09 | Outpatient (CLI) | payer OTHER, SELFPAY ==
--- NOTE | 2023-01-12 16:15 | CA_ITS ---
APPROVED REPORT EXAM: Comprehensive 2D, Doppler, and color-flow Echocardiogram Quality Improvement Coordinator: Denae Sullivan CRT Ht: 5 ft 4 in Wt: 190lbs BSA: 1.91 BP: 122/52 mmHg Indications: Tachycardia, sepsis, post-, anemia 2D Dimensions LVOT 1.63 cm (M/F) 1.5-2.5 LA Volume 18.80 mL LA Volume Index 9.60 mL/m2 (M/F) 16-34 M-Mode Dimensions RVDd 2.09 cm (0.9-2.6) LA Diam 2.98 cm (1.9-4.0) LVDd 4.53 cm (3.5-5.7) Ao Diam 3.23 cm (2.0-3.7) LVDs 2.79 cm (3.5-5.7) IVSd 1.25 cm (0.6-1.1) PWd 0.77 cm (0.6-1.1) EF (Teich) 68.80% FS 38.40% EDV (Teich) 93.90 mL TAPSE 1.87 (<1.7) ESV (Teich) 29.30 mL LV Diastology E Decel Time 180.00 (160-240 msec) E/A Ratio 1.61 MED E' 9.20 (< 7 cm/sec) MED A' 15.40 cm/s E'/MED E' Ratio 9.80 (>14) LAT E' 16.60 (<10 cm/sec) LAT A' 7.30 cm/s E/LAT E' Ratio 5.43 (>14) Aortic Valve AO Peak GR. 8.60 mmHg Mitral Valve MV E Max Julio C. 90.00 (40-130 cm/s) MV A Velocity 56.00 (40-130 cm/s) E/A Ratio 1.61 MV Decel. Time 180.00 (160-240 ms) MV PHT 53.00 ms Pulmonary Valve PV Peak Velocity 126.00 (50-150 cm/s) Tricuspid Valve TR P. Velocity 180.00 cm/s RAP Estimate 10.00 mmHg RVSP 22.90 mmHg Left Ventricle Left atrium is normal size left ventricle is normal size, estimated ejection fraction 55 to 60% with no regional wall motion abnormality, diastolic parameters are within normal range. Right Ventricle Right atrium and right ventricle are normal size and contractility. Aortic Valve Aortic valve is grossly normal there is no aortic stenosis or aortic insufficiency. Mitral Valve Mitral valve is grossly normal, there is trace mitral regurgitation. Tricuspid Valve Tricuspid valve grossly normal, there is trace tricuspid regurgitation, tricuspid regurgitation jet velocity is inadequate for calculation of the right ventricular systolic pressure. Pulmonic Valve Pulmonic valve is poorly visualized. Great Vessels Aortic root is normal size. Inferior vena cava is normal size with normal inspiratory collapse. Pericardium No significant pericardial effusion noted. Conclusion 1. Normal left ventricular size preserved left ventricular systolic function, estimated ejection fraction 55% with no regional wall motion abnormality, diastolic parameters are within normal range. 2. Trace mitral and tricuspid regurgitation. 3. No significant pericardial effusion noted. 4. Inferior vena cava is normal size with normal inspiratory collapse. Electronically signed by : Irvin Marie MD 01/12/2023 20:49:02
== END ==
PROVIDERS: PCP Nurse Practitioner Family; Visit Provider Nurse Practitioner Family
DX: R00.0 Tachycardia, unspecified (principal); D62 Acute posthemorrhagic anemia; N61.0 Mastitis without abscess; A41.9 Sepsis, unspecified organism
CPT/HCPCS: 93270; 93306

== ENCOUNTER → 2023-02-15 14:24 | Outpatient (CLI) | payer OTHER, SELFPAY ==
[2023-02-15 15:46] LABS: Free T4 (Free Thyroxine) 1.26 ng/dl (0.78-2.19)
[2023-02-15 16:01] LABS: Thyroid Stimulating Hormone 0.73 uIU/mL (0.465-4.68)
[2023-02-17 09:44] LABS: Thyroid Peroxidase Antibodies <9 IU/mL (0-34)
== END ==
PROVIDERS: PCP Nurse Practitioner Family; Visit Provider Physician Assistant
DX: R00.0 Tachycardia, unspecified (principal)
CPT/HCPCS: 36415; 84439; 84443; 86376

== ENCOUNTER 2023-11-25 10:46 | Emergency (ER) | payer OTHER, SELFPAY ==
[2023-11-25] VITALS (7 sets, daily range): BP systolic 108–132; BP diastolic 59–81; PULSE 67–78; RESP 15–18; TEMP 36.8; O2SAT 96–100; BMI 30.9
[2023-11-25 11:29] LABS: Chloride 105 mmol/L (98-107); Potassium 4.2 mmoL/L (3.5-5.1); Sodium 138 mmol/L (136-145)
[2023-11-25 11:32] LABS: Alanine Aminotransferase 17 U/L (12-78); Albumin Level 4.4 g/dl (3.5-5.0); Albumin/Globulin Ratio 1.2 (1.1-1.8); Alkaline Phosphatase 75 U/L (38-126); Anion Gap 9.2 mEq/L (5-15); Aspartate Amino Transferase 26 U/L (14-36); Bilirubin,Total 0.5 mg/dl (0.2-1.3); Blood Urea Nitrogen 15 mg/dl (7-17); Calcium 9.3 mg/dl (8.4-10.2); Carbon Dioxide 28 mmol/L (22.0-30.0); Creatinine Clearance Estimated 140 mL/min (50-200); Estimated Glomerular Filt Rate 88 ml/min (>60); GFR (African American) 107 ML/MIN (>60); Globulin 3.6 g/dL (1.3-3.2); Glucose 105 mg/dl (74-100)
[2023-11-25 11:35] LABS: Basophils % 0.4 % (0.1-2.0); Eosinophils # 0.1 K/mm3 (0.0-0.4); Eosinophils % 0.8 % (0.1-12.0); Hematocrit 41.6 % (37.0-47.0); Lymphocytes # 2.4 K/mm3 (0.7-4.5); Lymphocytes % 21.8 % (10-50); Mean Corpuscular HGB Conc 33.7 g/dL (31.8-35.4); Mean Corpuscular Hemoglobin 28.9 pg (27.0-31.2); Mean Corpuscular Volume 85.6 fl (81-99); Mean Platelet Volume 8.5 fl (7.4-10.4); Monocytes # 0.4 K/mm3 (0.1-1.0); Monocytes % 3.7 % (1.7-9.3); Neutrophils # 8.2 K/mm3 (1.8-7.8); Neutrophils % 73.4 % (37.0-80.0); Platelet Count 304 K/mm3 (142-424); Red Blood Count 4.86 M/mm3 (4.20-5.40); Red Cell Distribution Width 13.9 % (11.5-17.5); White Blood Count 11.2 K/mm3 (4.8-10.8)
[2023-11-25 11:43] LABS: HCG Qualitative, Serum Negative (Negative)
[2023-11-25 12:02] LABS: Microscopic, Urine URINE MICROSCOPIC (MICROSCOPIC)
[2023-11-25 12:04] LABS: Appearance,Urine CLEAR (Clear); Bilirubin,Urine Negative (Negative); Blood, Urine Negative (Negative); Color,Urine YELLOW (Yellow); Glucose,Urine (UA) Negative (Negative); Ketones,Urine Negative (Negative); Leukocyte Esterase,Urine Negative (Negative); Nitrate,Urine Negative (Negative); Protein,Urine Negative (Negative); Specific Gravity, Urine >= 1.030 (1.005-1.030); Urobilinogen,Urine 0.2 EU/dl (0.2)
[2023-11-25 12:25] LABS: Bacteria,Urine Trace /lpf; Mucus,Urine Trace /lpf; Squamous Epithelial Cell,Urine Occasional #/hpf (0-5); WBC,Urine Occasional #/hpf (0-3)
--- NOTE | 2023-11-25 12:35 | PC.NURSE ---
Dr. Orozco at BS for pt eval
--- NOTE | 2023-11-25 12:40 | CT_ITS ---
FINAL REPORT TECHNIQUE: Postcontrast axial images through the abdomen and pelvis were performed. This study was performed with techniques to keep radiation doses as low as reasonably achievable, (ALARA). Individualized dose reduction techniques using automated exposure control or adjustment of mA and/or kV according to the patient's size were employed. CLINICAL HISTORY: RLQ pain FINDINGS: Abdomen: The lung bases are clear. The liver is normal in size and attenuation. The spleen is unremarkable. The adrenals are normal. The pancreas is unremarkable. The kidneys enhance appropriately. The aorta is normal in caliber. No free fluid or adenopathy is identified. No findings for mechanical bowel obstruction are identified. Pelvis: The appendix is normal. There is a 22 mm heterogeneous right ovarian mass, favor hemorrhagic cyst. The urinary bladder is unremarkable. There is a small amount of free fluid, may be physiologic or reactive. No adenopathy is identified. IMPRESSION: Right ovarian mass, favor hemorrhagic cyst. Reviewed, Interpreted and Dictated by Calvin Lea III, MD Transcribed by Jeni Qiu Authenticated and [facility]
--- NOTE | 2023-11-25 12:44 | HMH.EDGENADL ---
Discharge Plan Disposition Patient Disposition: Home, Self-Care Condition: Good Prescriptions Prescriptions: New ondansetron 4 mg tablet,disintegrating 4 mg PO Q6 PRN (Reason: nausea and vomiting) 4 Days Qty: 16 0RF No Action sertraline 25 mg tablet 25 mg PO DAILY Qty: 30 11RF norgestimate-ethinyl estradiol [Sprintec (28)] 0.25-35 mg-mcg tablet 1 tab PO DAILY Qty: 84 4RF Referrals Follow up/Referrals: Lian King [Primary Care Provider] - See instructions Activity Restrictions/Add. Instructions Additional Instructions/Restrictions: As discussed, please follow-up with your [employer]IVER on 11/30/2023 at 8:30 AM concerning your right hemorrhagic cyst. Please take Tylenol/ibuprofen as needed for pain. Please return to ED for any new or worsening symptoms. Clinical Impressions Clinical Impression: Hemorrhagic cyst of right ovary Instructions Patient Instructions: DI for Acute Abdominal Pain Discharge ED Provider: Federico Orozco General Adult HPI General Chief complaint: Abdominal Pain Stated complaint: abd pain nausea dizziness hot flashes Time Seen by Provider: 11/25/23 12:09 Mode of Arrival: Ambulatory Source of Information: Patient Limitations: No Limitations Description of Symptoms (Recalled from ER Triage Doc. by RN): pt presents to ED with c/o abdominal pain that began this am. pt reports nausea with no vomitting. pt reports dizziness that has since resolved. History of Present Illness HPI narrative: 23-year-old female with past medical history significant for depression, tachycardia, presents today for evaluation concerning lower abdominal cramping that she rated as a 10 out of 10 during onset this morning. States that the pain is improved since that time. She also complains of nausea without emesis and dizziness characterized as lightheadedness. Denies having any fevers, chills, chest pain, shortness of breath, dysuria, hematuria. She denies stating that she is currently on control. No further complaints on assessment. Related Data Previous Rx's Medication Instructions Recorded norgestimate 0.25 mg-ethinyl 1 tab PO DAILY #84 tabs 07/05/23 estradiol 35 mcg tablet (Sprintec (28)) sertraline 25 mg tablet 25 mg PO DAILY #30 tabs 07/21/23 ondansetron 4 mg disintegrating 4 mg PO Q6 PRN nausea and vomiting 11/25/23 tablet 4 days #16 tabs Allergies Allergy/AdvReac Type Severity Reaction Status Date / Time SULFA (SULFONAMIDE) Allergy Mild NA-NAUSEA Uncoded 07/21/23 15:57 [facility] Disclaimer: The information contained in this section may have been updated after the patient was seen, as this information can be updated by other users. Medical History Acute blood loss anemia Anemia affecting , antepartum Depression Encounter for elective induction of labor Heartburn during Leukocytosis Mastitis Lactational mastitis with 39 completed weeks gestation Screening for genetic disease carrier status 07/01/22 - [facility] carrier screen negative for 14 conditions tested including SMA, Fragile X and CF Sepsis Third degree perineal laceration during delivery Surgical History Status post vaginal delivery Family History Other Breast cancer Social History Smoking Status: Never smoker second hand exposure: No alcohol intake: current substance use type: denies use current occupational status: employed Travel in the last 8 weeks: None housing: house do you feel safe at home: Yes victim of physical abuse: No victim of emotional abuse: No victim of sexual abuse: No ROS Obtained: Yes All systems reviewed & no additional complaints except as documented Physical Exam General General appearance: alert and in no apparent distress Head Head exam: atraumatic and normocephalic Eye Eye exam: Present normal appearance, PERRL and EOMI ENT ENT exam: Present normal oropharynx and mucous membranes moist Neck Neck exam: Present full ROM; Absent meningismus Respiratory Respiratory exam: Absent respiratory distress, wheezes, stridor or accessory muscle use Cardiovascular Cardiovascular exam: Present normal rhythm Abdominal Exam Abdominal exam: Present soft and tenderness (Tenderness to palpation in the right lower quadrant and suprapubic regions. No rebound or guarding. No distention.); Absent distention, guarding, rebound or rigidity Neurological Exam Neurological exam: Present alert, oriented X3 and CN II-XII intact; Absent motor sensory deficit Psychiatric Psychiatric exam: Present normal affect and normal mood Skin Skin exam: Present warm and dry Medical Decision Making Medical Records Medical records reviewed: Yes I reviewed the patient's medical records. Rowdy Inquiry Pt receiving controlled substance: No Rowdy was queried for this patient: No Vital Signs: 11/25/23 10:47 Temperature 98.2 F Temperature Source Oral Pulse Rate [Left Radial] 72 Respiratory Rate 15 Blood Pressure [Right Arm] 132/81 Blood Pressure Mean [Right Arm] 98 02 Sat by Pulse Oximetry 98 Oxygen Delivery Method Room Air Lab Data Lab Results 11/25/23 10:52: Urine Color Yellow, Urine Appearance Clear, Urine pH 6.0, Ur Specific [place] >= 1.030, Urine Protein Negative, Urine Glucose (UA) Negative, Urine Ketones Negative, Urine Blood Negative, Urine Nitrate Negative, Urine Bilirubin Negative, Urine Urobilinogen 0.2, Ur Leukocyte Esterase Negative, Urine RBC None, Urine WBC Occasional, Ur Squamous Epith Cells Occasional, Urine Bacteria Trace, Urine Mucus Trace 11/25/23 11:01: WBC 11.2 H, RBC 4.86, Hgb 14.0, Hct 41.6, MCV 85.6, MCH 28.9, MCHC 33.7, RDW 13.9, Plt Count 304, MPV 8.5, Neut % (Auto) 73.4, Lymph % (Auto) 21.8, [place] % (Auto) 3.7, Eos % (Auto) 0.8, Baso % (Auto) 0.4, Neut # (Auto) 8.2 H, Lymph # (Auto) 2.4, [place] # (Auto) 0.4, Eos # (Auto) 0.1, Baso # (Auto) 0.0, Sodium 138, Potassium 4.2, Chloride 105, Carbon Dioxide 28, Anion Gap 9.2, BUN 15, Creatinine 0.80, Estimated Creat Clear 140, Estimated GFR 88, Est GFR ( Amer) 107, Glucose 105 H, Calcium 9.3, Total Bilirubin 0.5, AST 26, ALT 17, Alkaline Phosphatase 75, Total Protein 8.0, Albumin 4.4, Globulin 3.6 H, Albumin/Globulin Ratio 1.2, Serum HCG, Qual Negative 11/25/23 11:01 11/25/23 11:01 Orders (Tests/Meds): ED MEDICATIONS Generic Name Dose Route Start Last Admin Trade Name Freq PRN Reason Stop Dose Admin Sodium Chloride 10 ml 11/25/23 11:18 Sodium Chloride 0.9% 10ml Flush Syringe IV 12/25/23 11:17 NEEDED PRN Maintain IV Site Discontinued Medications Generic Name Dose Route Start Last Admin Trade Name Temo PRN Reason Stop Dose Admin Iopamidol 75 ml 11/25/23 13:30 11/25/23 13:31 Iopamidol-370 (76%);100ml Bottle IV 11/25/23 13:31 75 ml ONCE ONE Administration Sodium Chloride 10 ml 11/25/23 13:30 11/25/23 13:30 Sodium Chloride 0.9% 10ml Syr (Rad Only) IV 11/25/23 13:31 10 ml ONCE ONE Administration ORDERS Category Date Time Status CT abdomen pelvis w con Stat Cat Scan 11/25/23 12:40 Completed Complete Blood Count Auto Diff Stat Lab 11/25/23 11:01 Completed Comprehensive Metabolic Panel Stat Lab 11/25/23 11:01 Completed Serum [HCG Qualitative, Serum] Stat Lab 11/25/23 11:01 Completed Urinalysis and Microscopic Stat Lab 11/25/23 10:52 Completed Medical Decision Narrative: 23-year-old female with past medical history significant for depression, tachycardia, presents today for evaluation concerning lower abdominal cramping that she rated as a 10 out of 10 during onset this morning. States that the pain is improved since that time. She also complains of nausea without emesis and dizziness characterized as lightheadedness. Is currently on control. On assessment she is hemodynamically stable and in no acute distress. Afebrile. The abdomen was soft and nondistended however was tender in the right lower quadrant and suprapubic regions. Chest is clear to auscultation bilaterally. Otherwise exam vitals unremarkable. Differential diagnoses include but not limited to appendicitis, ovarian cyst, ruptured ovarian cyst, ovarian torsion, gastroenteritis, , among others. Patient's lab work today is remarkable for a WBC of 11.2, likely reactive. Negative screen. No signs of UTI on urinalysis. I did order for a CT scan of the abdomen and pelvis to further assess and it did show a right ovarian mass that was consistent with hemorrhagic cyst. on reassessment patient rob medically stable and in no acute distress. I discussed her lab and imaging results and current plan. I was able to speak with [employer] and patient now has appointment scheduled on 11/30/2023 at 8:30 AM with her provider for follow. Provided her with strict return ED precautions. Verbalized understanding agree with plan. Subsequently discharged home in medically stable and in no acute distress. Critical Care Critical Care Time Critical Care Time: No
--- NOTE | 2023-11-25 13:20 | PC.NURSE ---
PT UPDATED AT THIS TIME. CALL LIGHT WITHIN REACH
--- NOTE | 2023-11-25 13:27 | PC.NURSE ---
PT TO CT
[2023-11-25] MEDS: SODIUM CHLORIDE 0.9% 10ML SYR (RAD ONLY) 10 ML IV (13:30)
[2023-11-25] MEDS: IOPAMIDOL-370 (76%);100ML BOTTLE 75 ML IV (13:31)
--- NOTE | 2023-11-25 14:14 | PC.NURSE ---
call made to [place] in radiology, she states she will fax down prelim read for CT scan.
--- NOTE | 2023-11-25 14:26 | PC.NURSE ---
DR WAGONER SPEAKING WITH OB ORTHODONTIST [employer]
--- NOTE | 2023-11-25 14:27 | PC.NURSE ---
DR WAGONER AT BEDSIDE TO UPDATE PT
== END 2023-11-25 14:40 | disposition home or self-care (01) ==
PROVIDERS: Emergency Provider Emergency Medicine; PCP Nurse Practitioner Family
DX: N83.201 Unspecified ovarian cyst, right side (principal); R10.30 Lower abdominal pain, unspecified; R11.0 Nausea; R00.0 Tachycardia, unspecified; R42 Dizziness and giddiness
CPT/HCPCS: 74177; 80053; 81001; 84703; 85025; 99285; Q9967

== ENCOUNTER 2024-09-21 13:38 | Emergency (ER) | payer OTHER, SELFPAY ==
[2024-09-21 14:31] VITALS: BP 108/72; PULSE 132; RESP 21; TEMP 37.3; O2SAT 100; BMI 29.3
--- NOTE | 2024-09-21 14:37 | ED_ITS ---
Discharge Plan Disposition Patient Disposition: Home, Self-Care Condition: Good Prescriptions Prescriptions: New azithromycin [Zithromax] 250 mg tablet 250 mg PO UD DOSE PK Qty: 6 0RF Rx Instructions: Take two (2) tablets today, then one (1) tablet days #2 thru #5 methylprednisolone 4 mg Tablets,Dose Pack 4 mg PO DIRECTED 6 Days Qty: 21 0RF Rx Instructions: Take 1 pack as directed for 6 days mwagdtgixshbzup-slpeotddh-JI [Bromfed DM] 2-30-10 mg/5 mL Syrup 5 ml PO Q6H PRN (Reason: Cough) Qty: 240 0RF No Action norgestimate-ethinyl estradiol [Sprintec (28)] 0.25-35 mg-mcg tablet See Rx Instructions .ROUTE .COMPLEX Qty: 84 1RF Dose Instruction: TAKE 1 TABLET BY MOUTH DAILY Rx Instructions: TAKE 1 TABLET BY MOUTH DAILY sertraline 25 mg tablet 25 mg PO DAILY Qty: 30 3RF Referrals Follow up/Referrals: Lian King [Primary Care Provider] - See instructions Activity Restrictions/Add. Instructions Additional Instructions/Restrictions: Drink plenty of fluids. Take tylenol or ibuprofen for pain or fever. Take the medications as directed. Follow up with your regular doctor. GO TO THE ER FOR ANY WORSENING SYMPTOMS Don't start the oral steroids (medrol dose pack) until tomorrow since you had the shot here Clinical Impressions Clinical Impression: Pharyngitis, Acute viral syndrome Instructions Patient Instructions: Sore Throat, DI for Pharyngitis/Tonsillopharyngitis -- Adult, Dexamethasone Injection Print Language Print Language: Hungarian Discharge ED Provider: Pola [place]ostegui [facility] [place] General Stated complaint: sore throat, body aches, chills, headache Mode of Arrival: Ambulatory Source of Information: Patient Time Seen by Provider: 09/21/24 14:36 Description of Symptoms (Recalled from Triage Doc. by RN): SORE THROAT, CHILLS, BODY ACHES, GAY, SINUS DRAINAGE HEENT Symptoms (Recalled from RN notes): Yes Resp Symptoms (Recalled from RN notes): Yes Skin Symptoms (Recalled from RN notes): No MS Symptoms (Recalled from RN notes): No Functional Status (Recalled from RN notes): WNL Related Data Previous Rx's ?Medication ?Instructions ?Recorded norgestimate 0.25 mg-ethinyl See Rx Instructions .Route 08/01/24 estradiol 35 mcg tablet (Sprintec .COMPLEX #84 tabs (28)) sertraline 25 mg tablet 25 mg PO DAILY #30 tabs 08/01/24 azithromycin 250 mg tablet 250 mg PO UD DOSE PK #6 tabs 09/21/24 (Zithromax) plmvhqzaqwkmoti-nplvizshdpvpmkd-KH 5 ml PO Q6H PRN Cough #240 mL 09/21/24 2 mg-30 mg-10 mg/5 mL oral syrup (Bromfed DM) methylprednisolone 4 mg tablets in 4 mg PO DIRECTED 6 days #21 tabs 09/21/24 a dose pack Allergies Allergy/AdvReac Type Severity Reaction Status Date / Time SULFA (SULFONAMIDE) Allergy Mild NA-NAUSEA Uncoded 11/30/23 08:32 Worker's Comp Is this a Worker's Comp case?: No PFS PFS Disclaimer: The information contained in this section may have been updated after the patient was seen, as this information can be updated by other users. Medical History Acute blood loss anemia Anemia affecting , antepartum Depression Encounter for elective induction of labor Heartburn during Leukocytosis Mastitis Lactational mastitis with 39 completed weeks gestation Screening for genetic disease carrier status 07/01/22 - [facility], [place] carrier screen negative for 14 conditions tested including SMA, Fragile X and CF Sepsis Third degree perineal laceration during delivery Surgical History Status post vaginal delivery Family History Other Breast cancer Social History Smoking Status: Never smoker second hand exposure: No alcohol intake: current alcohol intake frequency: holidays/special occasions only substance use type: denies use current occupational status: employed Travel in the last 8 weeks: None housing: house do you feel safe at home: Yes victim of physical abuse: No victim of emotional abuse: No victim of sexual abuse: No ROS Obtained: Yes All systems reviewed & no additional complaints except as documented Constitutional Constitutional: Reports chills and Reports fever(s) Eyes Eyes: Denies eye discharge ENT Ears, Nose, Mouth, and Throat: Reports as per HPI Cardiovascular Cardiovascular: Denies chest pain Respiratory Respiratory: Denies chest congestion and Reports cough Gastrointestinal Gastrointestingal: Reports nausea; Denies abdominal pain, constipation, cramping, diarrhea or vomiting Musculoskeletal Musculoskeletal: Denies arthralgias Integumentary/Breasts Skin/Breast: Denies rash Neurologic Neurologic: Denies paresthesias Physical Exam General General appearance: alert and in no apparent distress Head Head exam: atraumatic, normocephalic and normal inspection Eye Eye exam: Present normal appearance, PERRL and EOMI ENT ENT exam: Present mucous membranes moist and normal external ear exam Expanded ENT Exam TM/Canal exam: Bilateral TM: erythema and bulging Nose exam: Absent sinus tenderness Mouth exam: Present normal external inspection; Absent drooling Teeth exam: Present normal inspection Throat exam: Present tonsillar erythema, tonsillomegaly and tonsillar exudate Neck Neck exam: Present normal inspection, full ROM and trachea midline; Absent tenderness, meningismus or lymphadenopathy Chest Chest inspection: Present normal inspection and symmetric chest wall rise; Absent tenderness Respiratory Respiratory exam: Present normal lung sounds bilaterally; Absent respiratory distress, wheezes, stridor or accessory muscle use Cardiovascular Cardiovascular exam: Present regular rate and normal rhythm; Absent systolic murmur or diastolic murmur Abdominal Exam Abdominal exam: Present soft and normal bowel sounds; Absent distention, tenderness, guarding, rebound or rigidity Extremities Exam Extremities exam: Present normal inspection and normal capillary refill; Absent calf tenderness Back Exam Back exam: Present normal inspection and full ROM; Absent tenderness, CVA tenderness (R) or CVA tenderness (L) Neurological Exam Neurological exam: Present alert, oriented X3 and CN II-XII intact Psychiatric Psychiatric exam: Present normal affect and normal mood Skin Skin exam: Present warm, dry, intact and normal color Medical Decision Making Medical Records Medical records reviewed: No I reviewed the patient's medical records. Screening: Per USPSTF and CDC recommendations, given the prevalence of disease in our region, it is our hospital?s policy to screen for HIV and viral Hepatitis for all patients aged 18 and over and those with ongoing risk factors. Rowdy Inquiry Pt receiving controlled substance: No Vital Signs: 09/21/24 14:31 Temperature 99.2 F Temperature Source Oral Pulse Rate [Left Radial] 132 H Respiratory Rate 21 Blood Pressure [Left Arm] 108/72 L Blood Pressure Mean [Left Arm] 84 02 Sat by Pulse Oximetry 100 Lab Data Lab results reviewed: Yes I reviewed the patient's lab results.
[2024-09-21 14:41] LABS: UTC Influenza A Antigen Negative (Negative)
[2024-09-21 14:42] LABS: UTC Strep Screen (Rapid) Negative (Negative)
[2024-09-21 14:42] LABS: UTC Influenza B Antigen Negative (Negative)
[2024-09-21] MEDS: DEXAMETHASONE 4MG/ML 1ML VIAL 8 MG IM (15:24)
[2024-09-21 16:00] VITALS: BP 108/72; PULSE 132; RESP 21; TEMP 37.3
[2024-09-21 16:04] LABS: Coronavirus 19, PCR Not Detected (NotDetected); Influenza A, PCR Not Detected (NotDetected); Influenza B, PCR Not Detected (NotDetected)
== END 2024-09-21 16:01 | disposition home or self-care (01) ==
PROVIDERS: Emergency Provider Nurse Practitioner Family; PCP Nurse Practitioner Family
DX: J02.9 Acute pharyngitis, unspecified (principal); B34.9 Viral infection, unspecified
CPT/HCPCS: 87636; 87804; 87880; 99213; G0381; J1100